=== PATIENT | female | born 1980 | race Caucasian/White ===

== ENCOUNTER 2024-08-06 00:39 | Outpatient (CLI) | payer BC, SELFPAY ==
--- NOTE | 2024-08-06 11:45 | DI.MAMMO_ITS ---
Exam(s) MAMMO SCREENING EXAM: MAMMO SCREENING CLINICAL HISTORY: Screening, Z12.31 TECHNIQUE: Bilateral full field digital CC and MLO mammographic images were obtained with 3D tomosyn thesis and utilizing computer aided detection (CAD). COMPARISON: There are no priors available at this time for comparison. FINDINGS: The patient has bilateral breast implants. Masses/Architectural Distortion: No suspicious masses or areas of architectural distortion are presen t. Microcalcifications: No suspicious pleomorphic-type are seen. Skin Thickening/Nipple Retraction: None. IMPRESSION: 1. No evidence for malignancy is seen at this time. 2. Unless there is more urgent need, screening mammography is recommended, as per [employer] guidelines. BI-RADS Category 1 - Negative Breast Density - Category C - Heterogeneously dense Breast density category C or D implies that the patient has dense breast tissue. Dense breast tissue is very common and is not abnormal but dense breast tissue can make it harder to find cancer on a ma mmogram. Also, dense breast tissue may increase their breast cancer risk. This information about the result of the mammogram report was provided to the patient to raise their awareness. Use this report when you speak with the patient about their risks for breast cancer, which includes their family hist ory. At that time, you may recommend for more screening tests (Ultrasound or MRI) as they might be us eful based on their risk. A negative radiographic report should not delay biopsy if a dominant or clinically suspicious mass is present. Up to ten percent of cancers are not identified on mammography. A negative report may reinforce clinical impression. Adenosis and dense breasts may obscure an underlying neoplasm. False positive reports average 6 to 10%. Patient will receive a letter notifying them of these results.
== END 2024-08-06 00:59 ==
LOC: DI 00:39
PROVIDERS: PCP Nurse Practitioner Family; Visit Provider Nurse Practitioner Family
DX: Z12.31 Encounter for screening mammogram for malignant neoplasm of breast (principal); R92.333 Mammographic heterogeneous density, bilateral breasts
CPT/HCPCS: 77063; 77067

== ENCOUNTER 2024-10-16 06:10 | Day surgery (SDC) | payer BC, SELFPAY ==
--- NOTE | 2024-10-15 15:27 | W.PREOPHP ---
Assessment and Plan Assessment and plan (1) Encounter for screening colonoscopy: Status: Acute Assessment and plan: We reviewed the plan for screening colonoscopy today, and its role in routine healthcare maintenance. I explained the risks and the benefits of the procedure. Marcela is able to provide informed consent, and we can proceed with colonoscopy as scheduled History of Present Illness History of Present Illness Chief Complaint: Screening colonoscopy Narrative: Marcela is a 44-year-old woman with average risk for colorectal cancers who needs her for screening colonoscopy PFSH All Active Problems Encounter for screening colonoscopy (Acute) Anxiety (Chronic) Medical History H/O urethral stricture as child, had procedure to stretch Surgical History Hx of tubal ligation Hx of wisdom tooth extraction H/O breast augmentation Social History (Updated 07/27/24 @ 09:18 by Alem Snider MD) Smoking/Tobacco Use Status: Never Smoking risk assessment performed?: Yes Alcohol Intake: current Alcohol Intake frequency: a few times a week Drug use: Never Substance use type: does not use Details: alcohol: t-14, mixed drinks Housing: house Do you feel safe at home: Yes Do you feel safe in your relationship?: Yes Meds Allergies and Home Medications Allergies Allergy/AdvReac Type Severity Reaction Status Date / Time No Known Allergies Allergy Verified 10/16/24 06:29 Home Medications ?Medication ?Instructions ?Recorded ?Confirmed ?Type sertraline 50 mg tablet 25 mg PO DAILY 07/27/24 10/16/24 History Exam Const General: cooperative, healthy appearing and not in acute distress Neck Neck: normal visual inspection, no lymphadenopathy and supple Resp Effort & Inspection: normal respiratory effort Auscultation: clear to auscultation bilaterally Cardio Jugular venous pressure: no JVD Rate: regular rate Rhythm: regular rhythm Heart Sounds: S1 normal and S2 normal GI Inspection: normal to inspection Palpation: soft, no guarding, no hernias and nontender Percussion: normal to percussion Auscultation: normal bowel sounds Neuro General: patient alert, patient awake and patient oriented x3 Psych Appearance: grossly normal
--- NOTE | 2024-10-15 15:29 | W.COLOREPORT ---
Date of service: 10/16/24 Time of Service: 07:58 Colonoscopy Report Date of procedure: 10/16/24 Pre-op diagnosis general: screening colonoscopy Post-op diagnosis procedure note: other (Negative screening colonoscopy) Procedure: colonoscopy Surgeon: Malvin Roman Anesthesia Type: General:No Airway Estimated blood loss (mL): 0 Pathology: none sent Complications: None Disposition: same day Indications: Marcela is a 44 year old woman who needs a screening colonoscopy Prep: Miralax/Dulcolax Procedure Start Time: 07:38 Procedure End Time: 07:51 Retraction Time: 7 Findings: Negative screening colonoscopy Procedure Description: After the induction of anesthesia, and with the patient in left lateral decubitus position, I began by performing an external anorectal exam.? Perineum and skin were normal, as was the anal verge.? There was no evidence of external hemorrhoids.? Next, I performed a digital rectal exam.? I did not appreciate any abnormal findings.? Next, I advanced a colonoscope into the rectal vault.? I performed retroflexion.? This was normal.? Using insufflation, I then advanced the colonoscope beyond the rectal folds and into the sigmoid colon before advancing towards the cecum.? The quality of the prep was outstanding.? The scope was noted to be in the cecum by identification of the ileocecal valve and appendiceal orifice.? I then began withdrawing the colonoscope using repeated irrigation as necessary for full evaluation of the colonic mucosa. ?Once the scope was withdrawn to the level of the rectum, great care was taken to examine portions of the rectal folds.? Finally, the scope was withdrawn and the patient was brought to the same-day surgery recovery unit as the anesthetic wore off. ?I saw no signs of tumors, polyps, or any other worrisome pathology. The findings and instructions were shared with the patient prior to discharge. [place] Bowel Prep [place] Bowel Prep Right Colon: 3 Left Colon: 3 Transverse Colon: 3 Total Score: 9
--- NOTE | 2024-10-15 15:30 | W.PM.DSUDISC ---
Date of service: 10/16/24 Discharge Plan Disposition Patient Disposition: Home Condition: Good Discharge Details Reason For Visit: screening colonoscopy Attending Provider: Malvin Roman Primary Care Provider: Leatha Polanco Home Meds and New Rx's Prescriptions: Continued sertraline 50 mg tablet 25 mg PO DAILY Discontinued polyethylene glycol 3350 17 gram/dose powder 238 g PO ONCE Qty: 238 0RF Rx Instructions: take per colonoscopy instructions bisacodyl [Dulcolax (bisacodyl)] 5 mg tablet,delayed release (DR/EC) 5 mg PO ONCE Qty: 4 0RF Rx Instructions: take per colonoscopy instructions Discharge Instructions Additional Instructions: Marcela, it was a pleasure meeting you today, and I hope you feel great after the procedure. Things went very smoothly. Your prep was outstanding, we could see everything fine. I saw no signs of tumors, polyps, or any other worrisome pathology. With a negative screening colonoscopy today, I would encourage you to reconsider another one in 10 years as part of routine screening. 1. If tolerated, consume a soft, low fiber diet for 1-2 days. 2[address] Do not drive, drink alcohol, operate machinery, make critical decisions, or do activities that require coordination or balance for 24 hours. 3. Because air was put into your colon during the procedure, expelling air from your rectum (passing gas or farting) is normal. 4. You may not have a bowel movement for 1-3 days because of the colonoscopy prep. This is normal. 5. Go directly to the emergency room if you notice any of the following: Develop chills (warm to touch), or if you have a thermometer and your temperature is above 101 Difficulty breathing or difficultly swallowing Persistent vomiting Severe abdominal pain, other than gas cramps Severe chest pain Black, tarry stools Any bleeding ? exceeding one tablespoon 6. Call your physician if the site where your intravenous was started becomes red, swollen, painful, and warm to touch. 7. Your physician has reviewed your pre-procedure medications. Please continue to take those medications as previously ordered. You will be given specific information/education regarding any changes to your medications before leaving. Stand Alone Forms: Anesthesia Discharge InstAngelita Rivera (DSU) Activity:: Activity as Tolerated Diet:: As Tolerated Discharge Orders Discharge Orders: Discharge Order (Routine); Ordered 10/15/24 Ordered By: Malvin Roman DS: Diagnosis Discharge Diagnosis (1) Encounter for screening colonoscopy: Status: Acute Asessment and Plan: Normal screening colonoscopy; follow-up in 10-year
[2024-10-16 06:27] VITALS: BP 115/82; PULSE 73; RESP 16; TEMP 36.4; O2SAT 99
[2024-10-16] MEDS: Lactated Ringers 1,000 ML 80 ML IV (06:50)
--- NOTE | 2024-10-16 07:13 | W.ANESPRE ---
General Info Date of Service Date Performed: 10/16/24 Height: 5 ft 1.5 in Weight: 67.7 kg Body Mass Index (BMI): 27.7 Surgical Procedure: Operation Date: 10/16/24 07:35 Proposed Procedure Side Surgeon p Colonoscopy Malvin Roman MD Actual Procedure Side Surgeon p Colonoscopy Not Applicable Malvin Roman MD Pre-Op Diagnosis Post-Op Diagnosis screening colonoscopy Meds Allergies and Home Medications Allergies Allergy/AdvReac Type Severity Reaction Status Date / Time No Known Allergies Allergy Verified 10/16/24 06:29 Home Medication ?Medication ?Instructions ?Recorded sertraline 50 mg tablet 25 mg PO DAILY 07/27/24 Current Visit Medications: Current Medications Generic Name Dose Route Start Last Admin Trade Name Freq PRN Reason Stop Dose Admin Ringer's Solution 1,000 mls @ 80 mls/hr 10/16/24 06:00 10/16/24 06:50 IV 10/16/24 23:59 80 mls/hr INFUSION OLEG Administration IV Miscellaneous Supplies 1 each 10/16/24 06:00 Iv Access IV 10/16/24 23:59 DIRECTED OLEG Ondansetron HCl 4 mg 10/15/24 15:31 Ondansetron 4 Mg/2 Ml Vial IVP 11/14/24 15:30 Q4H PRN PRN Nausea / Vomiting Sodium Chloride 0 ml 10/16/24 06:00 Normal Saline Flush 10 Ml Syr IV 10/16/24 23:59 PRN PRN Sodium Chloride 0 ml 10/16/24 06:00 Normal Saline 10 Ml Vial IJ 10/16/24 23:59 DIRECTED PRN Sterile Water 0 ml 10/16/24 06:00 Water,Injection,Sterile 10 Ml Vial IJ 10/16/24 23:59 DIRECTED PRN PFSH Active Problems Active Problems: Problem Status Onset Code Encounter for screening colonoscopy Acute Z12.11 Anxiety Chronic F41.9 Medical History Medical History H/O urethral stricture as child, had procedure to stretch Surgical History Surgical History Hx of tubal ligation Hx of wisdom tooth extraction H/O breast augmentation Tobacco Smoking/Tobacco Use Status: Never Passive smoking exposure: No Alcohol Alcohol Intake: current Alcohol intake frequency: a few times a week Substance Use Substance use: Never Substance use type: does not use Details: alcohol: t-14, mixed drinks Vital Signs and Lab Results Vital Signs Most Recent Vital Signs in EMR: Most Recent Vital Signs Temp Pulse Resp BP Pulse Ox 36.4 C L 73 16 115/82 99 10/16/24 06:27 10/16/24 06:27 10/16/24 06:27 10/16/24 06:27 10/16/24 06:27 Point of Care Results Point of Care Results: POC- Test(urine) Negative 10/16/24 06:39 Lab Results Blood Type / Crossmatch: No Data to Display Complete Blood Count: No Data to Display Complete Metabolic Panel: No Data to Display Liver Function Panel: No Data to Display Coagulation Panel: No Data to Display Cardiac Panel: No Data to Display Arterial Blood Gas: No Data to Display Venous Blood Gas: No Data to Display Pancreas Panel: No Data to Display Thyroid Panel: No Data to Display Infectious Disease: No Data to Display Blood Cultures: No Data to Display Toxicology Panel: No Data to Display Panel: No Data to Display Anesthesia Assessment and Plan Anesthesia History Personal History: No History of Anesthesia Complications Family History: No Family History of Anesthesia Complications Exercise Tolerance Exercise Tolerance: Metabolic Equivalents>4 Pertinent Negatives Pertinent Negatives: No Symptoms of GERD Cardiac & Pulmonary Exam Cardiac Exam: Normal S1/S2 Heart Sounds Pulmonary Exam: Clear Bilateral Breath Sounds Implantable Cardiac Device Does patient have a Pacemaker or an ICD?: No Airway Exam Known Difficult Airway: No Mallampati Class: 2 Mouth Opening: Normal (> 3cm) Thyromental Distance: Greater than 3 cm Neck Range of Motion: Full ROM Neck Circumference: Normal Teeth Condition: Normal Dentition ASA Classification ASA Score: ASA 2 Emergency Case?: No NPO Status NPO Status: NPO Clears >2 hours, Solids >8 hours Status Status: Negative HCG Anesthesia Plan Resuscitation Status: Full Code Anesthesia Technique: General Anesthesia Airway Planned: Natural Airway Monitors Used: Standard Monitors
[2024-10-16 07:15] VITALS: BMI 27.7
[2024-10-16 07:55] VITALS: BP 99/66; PULSE 70; RESP 16; TEMP 36.4; O2SAT 99
[2024-10-16 08:21] VITALS: BP 113/78; PULSE 70; RESP 16; TEMP 36.3; O2SAT 98
--- NOTE | 2024-10-16 08:49 | W.ANESPOSTOP ---
Postoperative Evaluation Date, Time and Location Date Performed: 10/16/24 Time Performed: 08:05 Patient Location: Day Surgery Unit Vital Signs Most Recent Imported Vital Signs: Most Recent Vital Signs Temp Pulse Resp BP Pulse Ox 36.3 C L 70 16 113/78 98 10/16/24 08:21 10/16/24 08:21 10/16/24 08:21 10/16/24 08:21 10/16/24 08:21 Pain Score Most Recent Pain Score: Most Recent Pain Score Pain Level 0 10/16/24 08:21 Assessment Mental Status: Awake (Alert & Oriented to Patient Baseline) Airway and Respiratory Function: Patent airway with normal (patient baseline) respiratory exam Cardiovascular Function: Hemodynamically Stable Hydration Status: Adequately Hydrated Nausea & Vomiting: No Nausea or Vomiting Pain: Pt. Denies Any Pain Peripheral Nerve Block: Patient did not receive a nerve block
== END 2024-10-16 08:35 | disposition home or self-care (01) ==
LOC: SUR 06:12
PROVIDERS: PCP Nurse Practitioner Family; Visit Provider Surgery
PROC: 0DJD8ZZ Inspection of Lower Intestinal Tract, Via Natural or Artificial Opening Endoscopic (ICD-10-PCS; CPT 45378; principal; 2024-10-16 07:30)
DX: Z12.11 Encounter for screening for malignant neoplasm of colon (principal)
CPT/HCPCS: 45378; 81025; J2704